=== PATIENT | male | born 1970 | race Caucasian/White ===

== ENCOUNTER 2017-04-23 21:59 | Emergency (ER) | payer OTHER ==
[~2017-04-23] VITALS: Ht 182.9 cm; Wt 136.0 kg
[~2017-04-23 21:59] MED LIST: Z.0.NO CURRENT MEDS
[2017-04-23 22:00] VITALS: BP 139/88; PULSE 82; RESP 16; TEMP 97.6; O2SAT 96
[2017-04-23] MEDS ORDERED: TETANUS/DIPHTHERIA TOXOID ADULT 0.5 ML VIAL IM ONE (22:45)
--- NOTE | 2017-04-23 22:48 | PD ---
HPI Chief Complaint: Laceration/Skin Injury Time Seen by Provider: 22:45 Travel History International Travel<30 days: No Contact w/Intl Traveler<30days: No Traveled to known affect area: No History of Present Illness HPI 46-year-old male presents emergency Department with a laceration to his right inner leg from a piece of broken [place] at work today. Pain is minimal. He has not had a tetanus shot over 5 years. Exacerbated by broken [place]. No alleviating factors. PFSH Past Medical History Medical History: Denies Significant Hx Tetanus Vaccination: > 5 Years Past Surgical History Surgical History: No Previous Surgery Social History Alcohol Use: Yes Tobacco Use: No Substance Use: No Allergies-Medications (Allergen,Severity, Reaction): Coded Allergies: codeine (Verified Allergy, Severe, 04/23/17) Reported Meds & Prescriptions Reported Meds & Active Scripts Active Reported No Current Meds (Miscellaneous Medication) Misc Review of Systems General / Constitutional: No: Fever Eyes: No: Visual changes HENT: No: Headaches Cardiovascular: No: Chest Pain or Discomfort Respiratory: No: Shortness of Breath Gastrointestinal: No: Abdominal Pain Genitourinary: No: Dysuria Musculoskeletal: No: Pain Skin: No Rash Neurologic: No: Weakness Psychiatric: No: Depression Endocrine: No: Polydipsia Hematologic/Lymphatic: No: Easy Bruising Physical Exam Narrative GENERAL: This is a well-nourished, well-developed patient, in no apparent distress. SKIN: No rashes, ecchymoses or lesions. Warm and dry. HEAD: Atraumatic. Normocephalic. EYES: PERRL, EOMI, no discharge or injection. No scleral icterus. EARS: Clear NOSE: Nasal turbinates appear normal. THROAT: Mucosa pink and moist. Airway patent. NECK: Trachea midline. supple, moves head freely. LUNGS: Clear to auscultation. CV: Regular in rhythm. ABDOMEN: Soft nontender. EXT: No clubbing cyanosis or edema. Patient has a small laceration to the right calf. It is oozing blood. The laceration measures approximate 3 mm. Data Data Last Documented VS Vital Signs Date Time Temp Pulse Resp B/P (MAP) Pulse Ox O2 Delivery O2 Flow Rate FiO2 04/23/17 22:00 97.6 82 16 139/88 (105) 96 Room Air Orders Orders Tetanus/Diphtheria Tox Adult (Tetanus/Di (04/23/17 22:45) MDM Medical Decision Making Medical Screen Exam Complete: Yes Emergency Medical Condition: Yes Medical Record Reviewed: Yes Differential Diagnosis MDM: High Differential diagnoses: Fracture, sprain, strain, dislocation, contusion, neurovascular injury Narrative Course Patient has a very small laceration which is closed sutures. Tetanus status updated. Procedures Procedure Narrative LACERATION LOCATION: Right medial calf LENGTH: 3 mm NUMBER OF STITCHES/ALISE: 1 REPAIR: The area of the laceration was prepped with Betadine and sterilely draped. The laceration was infiltrated with 1% lidocaine with epinephrine. The wound was copiously irrigated and explored without evidence of foreign body , tendon injury or neurovascular injury. The wound was closed using 5-0 proline. This was a simple single layer repair. A sterile dressing was applied. The patient was advised to keep the dressing clean and dry. Patient tolerated the procedure well. Diagnosis Primary Impression: right leg laceration Patient Instructions: General Instructions Additional Instructions: Rest. Daily wound care with soap, water, Neosporin. Suture out in 7 days. Return to the ER for any problems. Med/Other Pt SpecificInfo: Wound Care Disposition: DISCHARGE HOME Condition: Stable Carlos Eduardo Rodriguez Apr 23, 2017 22:48
== END 2017-04-23 23:21 | disposition home or self-care (01) ==
LOC: NEPD 21:59
DX: S81.811A Laceration without foreign body, right lower leg, initial encounter (principal); W45.8XXA Other foreign body or object entering through skin, initial encounter; Z23 Encounter for immunization
CPT/HCPCS: 12001; 90471; 90714